=== PATIENT | male | born 1930 | race Caucasian/White ===

== ENCOUNTER 2017-02-19 12:35 | Emergency (ER) | payer MEDICARE, OTHER ==
[2017-02-19 12:57] LABS: Basophils # (A) 0.1 k/uL (0-0.2); Basophils % (A) 1 %; CH 29.4; CHCM 33.1; Eosinophils # (A) 0.1 k/uL (0-0.7); Eosinophils % (A) 2 %; HCT 41.8 % (39.0-53.0); HDW 2.62; HGB 13.6 gm/dL (13.0-17.5); Luc # (Auto) 0.08; Luc % (Auto) 1; Lymphocytes # (A) 1.1 k/uL (1.0-4.8); Lymphocytes % (A) 18 %; MCHC 32.5 g/dL (31.0-37.0); MCV 89.3 fL (80.0-100.0); Mean Platelet Volume 6.9; Monocytes # (A) 0.4 k/uL (0-1.0); Monocytes % (A) 6 %; Neutrophils # (A) 4.4 k/uL (1.3-7.7); Neutrophils % (A) 72 %; RBC 4.69 m/uL (4.30-5.90); RDW 13.9 % (11.5-15.5); WBC 6.1 k/uL (3.8-10.6); WBC (Perox) 6.12
--- NOTE | 2017-02-19 12:57 | ED ---
General Adult HPI - General Chief complaint: Dizziness Time Seen by Provider: 02/19/17 12:40 Source: patient, family, RN notes reviewed Mode of arrival: wheelchair Limitations: no limitations - History of Present Illness Initial comments: This is an 86-year-old male who presents to the emergency department complaining of feeling lightheaded becoming clammy and then nauseated. Patient was sent in to have an echocardiogram because he had a new murmur. According to the geotechnical operating engineer the patient was done with the test he stood up and became lightheaded and then became very clammy and very nauseated. Patient states this does happen to him occasionally gets up too fast. Patient did not think he got up too fast today however. Patient currently is asymptomatic. Patient states he never had any difficulty breathing or shortness of breath patient denies any chest pain or palpitations. Patient denies any recent fever chills or cough. Patient states he did eat a normal breakfast. Patient states he believes he has been hydrated lately as well. Patient denies any headache patient denies any numbness or focal weakness. - Related Data Home Medications Medication Instructions Recorded Confirmed Aspirin EC [Ecotrin Low Dose] 81 mg PO MOTUWETHFRSA 02/07/17 02/19/17 Calcium Carbonate/Vitamin D3 1 tab PO DAILY 02/07/17 02/19/17 [Calcium 600-Vit D3 200 Tablet] Allergies Allergy/AdvReac Type Severity Reaction Status Date / Time No Known Allergies Allergy Verified 02/19/17 13:10 Review of Systems ROS Statement: Those systems with pertinent positive or pertinent negative responses have been documented in the HPI. ROS Other: All systems not noted in ROS Statement are negative. Past Medical History Additional Past Medical History / Comment(s): Prostate cancer, kidney stone History of Any Multi-Drug Resistant Organisms: None Reported Past Surgical History: Hernia Repair, Orthopedic Surgery Additional Past Surgical History / Comment(s): isamar. hip replacement, prostate cancer with radiation in 2005 or 2007 per pt., bilateral cataract extraction and intraocular lens implants Past Anesthesia/Blood Transfusion Reactions: No Reported Reaction Past Psychological History: No Psychological Hx Reported Smoking Status: Never smoker Past Alcohol Use History: Occasional Additional Past Alcohol Use History / Comment(s): Patient is a lifelong nonsmoker. He denies any medical marijuana, marijuana, street drug use. He drinks 5-6 beers per week. He is retired tailor. He lives at home with his . Past Drug Use History: None Reported - Past Family History Father Family Medical History: Cancer Additional Family Medical History / Comment(s): at age 80 from bladder cancer. Mother Family Medical History: Congestive Heart Failure (CHF) Additional Family Medical History / Comment(s): Mother at age 85 from heart failure. She had history of abdominal aortic aneurysm repair. Brother(s) Additional Family Medical History / Comment(s): Patient has no brothers, no sisters. Son(s) Additional Family Medical History / Comment(s): Patient has 2 sons and 1 daughter with no major medical problems. General Exam - General Exam Comments Initial Comments: GENERAL: Patient is well-developed and well-nourished. Patient is nontoxic and well- hydrated and is in no acute distress. ENT: Neck is soft and supple. No significant lymphadenopathy is noted. Oropharynx is clear. Moist mucous membranes. Neck has full range of motion without eliciting any pain. EYES: The sclera were anicteric and conjunctiva were pink and moist. Extraocular movements were intact and pupils were equal round and reactive to light. Eyelids were unremarkable. PULMONARY: Unlabored respirations. Good breath sounds bilaterally. No audible rales rhonchi or wheezing was noted. CARDIOVASCULAR: There is a regular rate and rhythm without any murmurs gallops or rubs. ABDOMEN: Soft and nontender with normal bowel sounds. No palpable organomegaly was noted. There is no palpable pulsatile mass. SKIN: Skin is clear with no lesions or rashes and otherwise unremarkable. NEUROLOGIC: Patient is alert and oriented x3. Cranial nerves II through XII are grossly intact. Motor and sensory are also intact. Normal speech, volume and content. Symmetrical smile. MUSCULOSKELETAL: Normal extremities with adequate strength and full range of motion. No lower extremity swelling or edema. No calf tenderness. LYMPHATICS: No significant lymphadenopathy is noted PSYCHIATRIC: Normal psychiatric evaluation. Normal interpersonal interactions appears functionally intact in deals appropriately with others. No signs of depression. No signs of anxiety. Limitations: no limitations Course Vital Signs 02/19/17 02/19/17 12:38 12:53 Temperature 96.9 F L Pulse Rate 76 Respiratory 16 16 Rate Blood Pressure 140/78 Blood Pressure 138/74 [Left Arm Sitting] Blood Pressure 146/80 [Left Arm Standing] Blood Pressure 150/81 [Left Arm Supine] O2 Sat by Pulse 97 Oximetry Medical Decision Making - Medical Decision Making EKG shows a normal sinus rhythm at 71 bpm OH interval 174 QRS is 78 QT interval 396 QTC is 430. Patient's EKG shows no ST segment elevation or depression or T- wave abdomen is noted. Patient's chest x-ray shows no abnormality. Patient had no orthostatic hypotension. Patient was able to ambulate around the emergency department quite a brisk pace without symptoms. Patient wanted to be discharged home and he was looking good enough at this time to be discharged home and follow up with his primary medical care doctor and cardiology - Lab Data Result diagrams: 02/19/17 12:40 02/19/17 12:40 Lab Results 02/19/17 02/19/17 02/19/17 Range/Units 12:40 12:40 12:40 WBC 6.1 (3.8-10.6) k/uL RBC 4.69 (4.30-5.90) m/uL Hgb 13.6 (13.0-17.5) gm/dL Hct 41.8 (39.0-53.0) % MCV 89.3 (80.0-100.0) fL MCH 29.0 (25.0-35.0) pg MCHC 32.5 (31.0-37.0) g/dL RDW 13.9 (11.5-15.5) % Plt Count 229 (150-450) k/uL Neutrophils % 72 % Lymphocytes % 18 % Monocytes % 6 % Eosinophils % 2 % Basophils % 1 % Neutrophils # 4.4 (1.3-7.7) k/uL Lymphocytes # 1.1 (1.0-4.8) k/uL Monocytes # 0.4 (0-1.0) k/uL Eosinophils # 0.1 (0-0.7) k/uL Basophils # 0.1 (0-0.2) k/uL PT (9.0-12.0) sec INR (<1.1) APTT (22.0-30.0) sec Sodium 138 (137-145) mmol/L Potassium 5.0 (3.5-5.1) mmol/L Chloride 104 (98-107) mmol/L Carbon Dioxide 25 (22-30) mmol/L Anion Gap 9 mmol/L BUN 24 H (9-20) mg/dL Creatinine 0.66 (0.66-1.25) mg/dL Est GFR (MDRD) Af Amer >60 (>60 ml/min/1.73 sqM) Est GFR (MDRD) Non-Af >60 (>60 ml/min/1.73 sqM) Glucose 102 H (74-99) mg/dL Calcium 9.6 (8.4-10.2) mg/dL Magnesium 2.1 (1.6-2.3) mg/dL Total Bilirubin 0.8 (0.2-1.3) mg/dL AST 27 (17-59) U/L ALT 24 (21-72) U/L Alkaline Phosphatase 56 (38-126) U/L Total Creatine Kinase 74 (55-170) U/L CK-MB (CK-2) 2.1 (0.0-2.4) ng/mL CK-MB (CK-2) Rel Index 2.8 Troponin I <0.012 (0.000-0.034) ng/mL Total Protein 7.0 (6.3-8.2) g/dL Albumin 4.1 (3.5-5.0) g/dL 02/19/17 Range/Units 12:40 WBC (3.8-10.6) k/uL RBC (4.30-5.90) m/uL Hgb (13.0-17.5) gm/dL Hct (39.0-53.0) % MCV (80.0-100.0) fL MCH (25.0-35.0) pg MCHC (31.0-37.0) g/dL RDW (11.5-15.5) % Plt Count (150-450) k/uL Neutrophils % % Lymphocytes % % Monocytes % % Eosinophils % % Basophils % % Neutrophils # (1.3-7.7) k/uL Lymphocytes # (1.0-4.8) k/uL Monocytes # (0-1.0) k/uL Eosinophils # (0-0.7) k/uL Basophils # (0-0.2) k/uL PT 11.8 (9.0-12.0) sec INR 1.2 (<1.1) APTT 22.3 (22.0-30.0) sec Sodium (137-145) mmol/L Potassium (3.5-5.1) mmol/L Chloride (98-107) mmol/L Carbon Dioxide (22-30) mmol/L Anion Gap mmol/L BUN (9-20) mg/dL Creatinine (0.66-1.25) mg/dL Est GFR (MDRD) Af Amer (>60 ml/min/1.73 sqM) Est GFR (MDRD) Non-Af (>60 ml/min/1.73 sqM) Glucose (74-99) mg/dL Calcium (8.4-10.2) mg/dL Magnesium (1.6-2.3) mg/dL Total Bilirubin (0.2-1.3) mg/dL AST (17-59) U/L ALT (21-72) U/L Alkaline Phosphatase (38-126) U/L Total Creatine Kinase (55-170) U/L CK-MB (CK-2) (0.0-2.4) ng/mL CK-MB (CK-2) Rel Index Troponin I (0.000-0.034) ng/mL Total Protein (6.3-8.2) g/dL Albumin (3.5-5.0) g/dL Disposition Clinical Impression: Vasovagal episode Disposition: HOME SELF-CARE Instructions: Dizziness (ED) Referrals: Sally Hannah MD [Primary Care Provider] - 1-2 days Time of Disposition: 14:05
[2017-02-19 13:07] LABS: Anion Gap 9 mmol/L; Calcium 9.6 mg/dL (8.4-10.2); Carbon Dioxide 25 mmol/L (22-30); Chloride 104 mmol/L (98-107); Glucose 102 mg/dL (74-99); Non-African American GFR(MDRD) >60 (>60 ml/min/1.73 sqM); Sodium 138 mmol/L (137-145); Total Bilirubin 0.8 mg/dL (0.2-1.3)
[2017-02-19 13:08] LABS: ALT 24 U/L (21-72); AST 27 U/L (17-59); Blood Urea Nitrogen 24 mg/dL (9-20); Magnesium 2.1 mg/dL (1.6-2.3)
[2017-02-19 13:09] LABS: Alkaline Phosphatase 56 U/L (38-126)
[2017-02-19 13:13] LABS: INR 1.2 (<1.1); Prothrombin Time 11.8 sec (9.0-12.0)
[2017-02-19 13:16] LABS: Creatine Kinase 74 U/L (55-170)
[2017-02-19 13:19] LABS: Partial Thromboplastin Time 22.3 sec (22.0-30.0)
[2017-02-19 13:29] LABS: Creatine Kinase MB 2.1 ng/mL (0.0-2.4); Troponin I <0.012 ng/mL (0.000-0.034)
--- NOTE | 2017-02-19 13:41 | XR ---
EXAMINATION TYPE: XR chest 2V DATE OF EXAM: 02/19/2017 1:28 PM COMPARISON: Prior chest x-ray 19 May 2012 HISTORY: Chest pain TECHNIQUE: Frontal and lateral views of the chest are obtained. FINDINGS: There is no focal air space opacity, pleural effusion, or pneumothorax seen. The cardiac silhouette size is within normal limits. There is persistent elevation of the left hemidiaphragm. Gabby ntration of right hemidiaphragm is noted. The osseous structures are intact. IMPRESSION: No acute cardiopulmonary process.
[2017-02-19] MEDS ORDERED: SODIUM CHLORIDE 0.9% 500 ML IV ONE (13:52)
[2017-02-19 14:08] VITALS: RESP 18
[2017-02-19 14:49] VITALS: BP 162/82; PULSE 79; TEMP 97
--- NOTE | 2017-02-20 10:19 | ECHOF ---
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 This was a technically good study. There is mild concentric left ventricular hypertrophy. Overall left ventricular systolic function is low-normal with, an EF between 50 - 55 %. The right ventricle is normal in size. Normal LA size by volume 22+/-6 ml/m2. The right atrial size is normal. Moderate to severe aortic stenosis with peak/mean pressure gradient of 59.77mmHg / 32.91mmHg, the aortic valve area by continuity equation is 0.7cm. Mild mitral annular calcification present. Mild mitral regurgitation is present. Mild tricuspid regurgitation present. There is no evidence of pulmonary hypertension. The right ventricular systolic pressure, as measured by Doppler, is 25.18mmHg. There is no pulmonic regurgitation present. The aortic root size is normal. There is no pericardial effusion. CONCLUSIONS -------- 1. There is mild concentric left ventricular hypertrophy. 2. Overall left ventricular systolic function is low-normal with, an EF between 50 - 55 %. 3. Moderate to severe aortic stenosis with peak/mean pressure gradient of 59.77mmHg / 32.91mmHg, the aortic valve area by continuity equation is 0.7cm. 4. Mild mitral annular calcification present. 5. Mild mitral regurgitation is present. 6. Mild tricuspid regurgitation present. 7. There is no evidence of pulmonary hypertension. 8. The right ventricular systolic pressure, as measured by Doppler, is 25.18mmHg. EQUITY DIRECTOR: Kristan Hurley RDCS
== END 2017-02-19 14:47 | disposition home or self-care (01) ==
LOC: EC 12:35
DX: R55 Syncope and collapse (principal); R11.0 Nausea; Z79.82 Long term (current) use of aspirin; Z79.899 Other long term (current) drug therapy
CPT/HCPCS: 36415; 71020; 80053; 82550; 82553; 83735; 84484; 85025; 85610; 85730; 93005; 93306; 99284

== ENCOUNTER 2017-04-03 06:20 | Day surgery (SDC) | payer MEDICARE, OTHER ==
[2017-03-28 12:40] VITALS: BMI 28.3
[2017-04-03 06:52] VITALS: TEMP 97.7
[2017-04-03] MEDS ORDERED: BENZOCAINE SPRAY 100 APPLIC/CAN ONE (07:30)
[2017-04-03] MEDS ORDERED: MIDAZOLAM 2 MG/2 ML VIAL ONE (07:30)
[2017-04-03] MEDS ORDERED: fentaNYL (PF) 50 MCG/ML 2 ML AMP ONE (07:31)
[2017-04-03] MEDS ORDERED: BENZOCAINE SPRAY 100 APPLIC/CAN MUCOUS MEM ONE (07:38)
[2017-04-03] MEDS ORDERED: MIDAZOLAM 2 MG/2 ML VIAL IV ONE (07:38)
[2017-04-03] MEDS ORDERED: fentaNYL (PF) 50 MCG/ML 2 ML AMP IV ONE (07:38)
[2017-04-03] MEDS ORDERED: SODIUM CHLORIDE 0.9% 1,000 ML IV SCH (08:00)
[2017-04-03] MEDS ORDERED: SODIUM CHLORIDE 0.9% 500 ML IV ONE (08:01)
--- NOTE | 2017-04-03 08:34 | ECHOT ---
DATE OF SERVICE: INDICATION: Evaluation of aortic valve. PROCEDURE: After explaining the procedure to the patient, it's risk and complications, his blood pressure, heart rate, O2 saturation was monitored. The throat was sprayed with Cetacaine. He received 2 mg of intravenous Versed, 50 mcg intravenous fentanyl. After obtaining moderate conscious sedated state, the probe was introduced into the esophagus without difficulty. Images were obtained. Following that, the probe was removed. There was no immediate complication. FINDINGS: Left atrial size is mildly dilated, left atrial appendage is normal. Left ventricular size and systolic function is normal. The aortic valve is a tricuspid valve with severe calcification and severe reduction in the opening by planimetry. The valve area is 0.9 cm2. The mitral valve revealed mild calcification. The tricuspid valve is normal. Descending thoracic aorta revealed mild to moderate atherosclerotic changes. No pericardial effusion was noted. Contrast bubble study revealed no evidence of shunting across the interatrial septum. Doppler pulse wave was obtained and revealed mild mitral and aortic regurgitation as well as tricuspid regurgitation. There was no evidence of shunting by color Doppler study. There was difficulty obtaining an accurate gradient across the aortic valve. CONCLUSION: 1. Moderate dilated left atrium and internal systolic function. 2. Tricuspid aortic valve with severe aortic stenosis. 3. Mild mitral and aortic regurgitation and tricuspid regurgitation. 4. No shunting across the interatrial septum. 5. Mild to moderate atherosclerotic changes of the descending thoracic aorta.
[2017-04-03] MEDS ORDERED: ASPIRIN 81 MG CHEW PO SCH (09:00)
[2017-04-03 09:02] VITALS: PULSE 78; RESP 18
[2017-04-03 09:33] VITALS: BP 124/72
[2017-04-03] MEDS ORDERED: CALCIUM CARB-VIT D 500MG-200UN 1 EACH TAB PO SCH (12:00)
== END 2017-04-03 09:30 | disposition home or self-care (01) ==
LOC: CATHCVL 06:20
PROVIDERS: ATTEND Internal Medicine Interventional Cardiology
DX: I35.0 Nonrheumatic aortic (valve) stenosis (principal); I36.1 Nonrheumatic tricuspid (valve) insufficiency; I34.0 Nonrheumatic mitral (valve) insufficiency; I70.0 Atherosclerosis of aorta; E78.00 Pure hypercholesterolemia, unspecified; E78.5 Hyperlipidemia, unspecified; Z85.46 Personal history of malignant neoplasm of prostate; Z79.82 Long term (current) use of aspirin; Z79.899 Other long term (current) drug therapy
CPT/HCPCS: 93312; 93320; 93325; 99152; J2250; J3010

== ENCOUNTER → 2019-09-14 | Outpatient (CLI) | payer MEDICARE ==
[2019-09-14 10:36] LABS: HCT 41.1 % (39.0-53.0); HGB 13.6 gm/dL (13.0-17.5); MCH 29.3 pg (25.0-35.0); MCHC 33.1 g/dL (31.0-37.0); MCV 88.5 fL (80.0-100.0); Mean Platelet Volume 6.4; Platelet Count 239 k/uL (150-450); RBC 4.64 m/uL (4.30-5.90); RDW 13.7 % (11.5-15.5); WBC 7.5 k/uL (3.8-10.6)
[2019-09-14 10:58] LABS: African American GFR (CKD) >90 (>60 ml/min/1.73 sqM); Anion Gap 6 mmol/L; Blood Urea Nitrogen 23 mg/dL (9-20); Carbon Dioxide 28 mmol/L (22-30); Chloride 107 mmol/L (98-107); Potassium 4.4 mmol/L (3.5-5.1); Sodium 141 mmol/L (137-145)
== END | disposition home or self-care (01) ==
LOC: LABPAT 10:11
PROVIDERS: ATTEND Internal Medicine Interventional Cardiology
DX: Z01.812 Encounter for preprocedural laboratory examination (principal); I35.0 Nonrheumatic aortic (valve) stenosis
CPT/HCPCS: 36415; 80051; 82565; 84520; 85027

== ENCOUNTER 2019-09-15 06:03 | Day surgery (SDC) | payer MEDICARE ==
[2019-09-14 08:47] VITALS: BMI 28.7
[2019-09-15] MEDS ORDERED: SODIUM CHLORIDE 0.9% 1,000 ML in EMPTY BAG 1 BAG IV ONE (06:12)
[2019-09-15] MEDS ORDERED: NITROGLYCERIN SL TABS 0.4 MG TAB SUBLINGUAL PRN (06:12)
[2019-09-15] MEDS ORDERED: ALPRAZolam 0.5 MG TAB PO PRN (06:12)
[2019-09-15] MEDS ORDERED: ALPRAZolam 0.25 MG TAB PO PRN (06:12)
[2019-09-15 06:35] VITALS: TEMP 97.8
[2019-09-15] MEDS ORDERED: SODIUM CHLORIDE 0.9% 1,000 ML IV ONE ×2 (06:36→07:16)
[2019-09-15] MEDS ORDERED: ASPIRIN 325 MG TAB PO ONE (07:00)
[2019-09-15] MEDS ORDERED: ATORVASTATIN 80 MG TAB PO ONE (07:00)
[2019-09-15] MEDS ORDERED: fentaNYL (PF) 50 MCG/ML 2 ML AMP ONE (07:00)
[2019-09-15] MEDS ORDERED: BENZOCAINE SPRAY 1 CAN MUCOUS MEM ONE (07:15)
[2019-09-15] MEDS ORDERED: fentaNYL (PF) 50 MCG/ML 2 ML AMP IVP ONE (07:20)
[2019-09-15] MEDS ORDERED: MIDAZOLAM 2 MG/2 ML VIAL IVP ONE (07:20)
--- NOTE | 2019-09-15 07:56 | ECHOT ---
TRANSESOPHAGEAL ECHOCARDIOGRAM INDICATION: Evaluation of aortic valve. PROCEDURE: After explaining the procedure to the patient, its risks and the complications, blood pressure, heart rate, O2 saturation was monitored. The throat was sprayed with Cetacaine. He received 2 mg intravenous Versed, 50 mcg intravenous fentanyl. The probe was introduced in the esophagus without difficulty. Images were obtained. Following that, the probe was removed. There was no immediate complication. FINDINGS: Left atrial size is mildly dilated. Left ventricular size and systolic function normal. Left ventricular hypertrophy was noted. The mitral valve revealed mild mitral anulus calcification. Tricuspid valve is normal. The aortic valve is tricuspid valve with severe calcification and severe reduction in the opening. Descending thoracic aorta revealed no significant atherosclerotic changes. No pericardial effusion was noted. Contrast bubble study revealed no shunting across the interatrial septum with Valsalva maneuver. Doppler pulse wave and color Doppler obtained and revealed a mean gradient across the aortic valve of 42 mmHg with a peak of 62 mmHg consistent with severe aortic stenosis. Mild mitral, aortic and tricuspid regurgitation. There was no evidence of pulmonary hypertension. There was no shunting by color Doppler study. CONCLUSION: 1. Mildly dilated left atrium. 2. Normal left ventricular size and systolic function and left ventricular hypertrophy. 3. Severe aortic stenosis with a mean gradient of 42 mmHg with mild aortic regurgitation. 4. Mild mitral and tricuspid regurgitation. 5. No shunting across the interatrial septum. 6. No pericardial effusion. MMODL / IJN: [id number] /
[2019-09-15] MEDS ORDERED: LIDOCAINE 1% INJ 10MG/ML (20 ML MDV) SQ ONE ×2 (08:03→08:36)
[2019-09-15] MEDS ORDERED: VERAPAMIL SYRINGE (5 MG/10 ML) INTRAARTER ONE (08:04)
[2019-09-15 08:37] LABS: O2 Sat Blood Gas 93.4 %
[2019-09-15 08:39] LABS: O2 Sat Blood Gas 64.8 %
[2019-09-15] MEDS ORDERED: HEPARIN SODIUM 1,000 UN/ML (10ML VL) IV ONE (08:39)
[2019-09-15] MEDS ORDERED: IOPAMIDOL-370 125ML BTL INJ ONE (08:53)
[2019-09-15] MEDS ORDERED: RX INFO: IV CONTRAST WAS GIVEN 1 EACH MISC MISCELLANE PRN (09:08)
[2019-09-15] MEDS ORDERED: SODIUM CHLORIDE 0.9% 1,000 ML IV SCH (09:15)
--- NOTE | 2019-09-15 09:53 | CC ---
CARDIAC CATHETERIZATION REPORT Mr. Mcleod is an 89-year-old male with known history of severe aortic stenosis who has been complaining of progressive dyspnea and fatigue was worsening aortic valve gradient on his transthoracic echocardiogram in view of that, recommendation regarding cardiac catheterization the procedures risks and complications were discussed with the patient who is in full understanding and agreement. PROCEDURE: Patient was brought to catholic priest in a fasting semi-sedated state after receiving fentanyl and Benadryl and achieving moderate conscious sedated state. Using Xylocaine anesthesia and Seldinger technique, a 6-Brazilian sheath was introduced in the right radial artery. Following that, the intravenous sheath in the right basic cervical vein was exchanged to a 6-Brazilian sheath and right heart catheterization was performed using [place]-Julissa catheter multiple pressure and samples were obtained cardiac output by thermodilution was calculated. Following that, right coronary angiography was performed using 5-Brazilian 3.5 bend right Aisha catheter images of the right coronary artery were performed. Multiple attempts to advance a 3 and half 5 bend and a multipurpose A2 as well as Bhaskar catheter were unsuccessful because of tortuosity in the right takeoff of the records phallic artery at that time. Using Xylocaine anesthesia and Seldinger technique, an is using Xylocaine and anesthesia/technique a 6- Brazilian sheath was introduced right femoral artery and a 6-Brazilian FL4, 6-Brazilian 4 and half bent left Aisha catheter was used to cannulate seeing the left main. Images of the coronary artery were performed. Following that, catheter and sheath were removed. Hemostasis was obtained with deployment of a TR band and compression of the right femoral artery. The patient received 4500 units of intravenous heparin as well as intra-arterial verapamil. There was no immediate complication. FINDINGS: HEMODYNAMICS: Pulmonary artery systolic pressure of 32 with a diastolic of 14 and a mean of 20 mmHg. PULMONARY CAPILLARY WEDGE PRESSURE: A-wave of 18, V-wave of 16 with a mean of 14 mmHg. Her right ventricular systolic pressure of 30 with an end-diastolic of 4 mmHg. Right atrial A-wave of 6, V-wave of 4 with a mean of 3 mmHg. Right atrial saturation 65%, pulmonary saturation 65%. The arterial saturation 93%. Cardiac output by thermodilution 5.1 L/minute. FLUOROSCOPY: There was severe calcification involving the aortic valve. LEFT MAIN: This is a large-sized vessel, bifurcating into left circumflex, left anterior descending artery, left main coronary artery has no evidence of high-grade stenosis. LEFT ANTERIOR DESCENDING ARTERY: This is a large-sized vessel, reaching toward the apex, tapers down distal third, giving rise to a large diagonal branch. At the takeoff of the diagonal branch, the LAD has a tubular 70% to 80% stenosis. The proximal diagonal branch has a 60% to 70% plaque. The rest of the vessel has no high-grade stenosis. LEFT CIRCUMFLEX: This is a large dominant vessel, tortuous proximally giving rise to a large obtuse marginal branch. Distally bifurcating into PDA and posterolateral segment branches. The left circumflex has mild intimal disease in the distal segment of 20% to 30% without any evidence of high-grade stenosis. RIGHT CORONARY ARTERY: This is a small nondominant vessel. The mid segment of the right coronary artery has an area of stenosis of 70% to 80%. The rest of the vessel has no high-grade stenosis. CONCLUSION: 1. 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 2. Significant disease small nondominant right coronary artery. 3. Heavily calcified aortic valve. RECOMMENDATION: At this time, I will continue medical therapy. Patient will be evaluated for TAVR and possible coronary percutaneous revascularization. Those findings and recommendation were discussed with the patient and his family who are in full understanding and agreement. Duration of procedure is 54 minutes. MMODL / IJN: [id number] /
[2019-09-15 10:31] VITALS: RESP 16
[2019-09-15 16:41] VITALS: BP 125/72; PULSE 65
[2019-09-15] MEDS ORDERED: METOPROLOL SUCCINATE (ER) 25 MG TAB.ER.24H PO SCH (21:00)
[2019-09-16] MEDS ORDERED: ASPIRIN 81 MG PO SCH (09:00)
[2019-09-16] MEDS ORDERED: amLODIPine 10 MG TAB PO SCH (09:00)
== END 2019-09-15 17:06 | disposition home or self-care (01) ==
LOC: CATHCVL 06:03
PROVIDERS: ATTEND Internal Medicine Interventional Cardiology
DX: I08.3 Combined rheumatic disorders of mitral, aortic and tricuspid valves (principal); I77.1 Stricture of artery; I25.10 Atherosclerotic heart disease of native coronary artery without angina pectoris; I11.9 Hypertensive heart disease without heart failure; E78.00 Pure hypercholesterolemia, unspecified; E78.5 Hyperlipidemia, unspecified; R60.0 Localized edema; Z79.82 Long term (current) use of aspirin; Z79.899 Other long term (current) drug therapy
CPT/HCPCS: 93312; 93320; 93325; 93456; 85018; 82810; C1751; C1894 ×2; C1769; J2250; J2001; J3010; J1644; Q9967

== ENCOUNTER 2019-10-06 10:13 | Day surgery (SDC) | payer MEDICARE ==
[2019-09-30 10:51] VITALS: BMI 28.7
[~2019-10-06 10:13] MED LIST: ALPRAZolam 0.25 MG TAB PO PRN; ALPRAZolam 0.5 MG TAB PO PRN; ASPIRIN 325 MG TAB PO STA; ATORVASTATIN 80 MG TAB PO STA; NITROGLYCERIN SL TABS 0.4 MG TAB SUBLINGUAL PRN; SODIUM CHLORIDE 0.9% 1,000 ML in EMPTY BAG 1 BAG IV ONE
[2019-10-06] MEDS ORDERED: fentaNYL (PF) 50 MCG/ML 2 ML AMP ONE (12:06)
[2019-10-06] MEDS ORDERED: LIDOCAINE 1% INJ 10MG/ML (20 ML MDV) ONE (12:06)
[2019-10-06] MEDS ORDERED: fentaNYL (PF) 50 MCG/ML 2 ML AMP IV ONE (12:18)
[2019-10-06] MEDS ORDERED: LIDOCAINE 1% INJ 10MG/ML (20 ML MDV) SQ ONE (12:22)
[2019-10-06] MEDS ORDERED: BIVALIRUDIN BOLUS 250 MG/50 ML IV ONE (12:29)
[2019-10-06] MEDS ORDERED: BIVALIRUDIN 250 MG in SODIUM CHLORIDE 0.9% 50 ML IV ONE (12:29)
[2019-10-06] MEDS ORDERED: CLOPIDOGREL 75 MG TAB ONE (12:31)
[2019-10-06] MEDS ORDERED: CLOPIDOGREL 75 MG TAB PO ONE (12:37)
[2019-10-06] MEDS ORDERED: IOPAMIDOL-370 125ML BTL INJ ONE (13:03)
[2019-10-06] MEDS ORDERED: IOPAMIDOL-370 100ML BTL INJ ONE (13:09)
[2019-10-06] MEDS ORDERED: MAG HYDROX/AL HYDROX/SIMETH 30 ML CUP PO PRN (13:26)
[2019-10-06] MEDS ORDERED: RX INFO: IV CONTRAST WAS GIVEN 1 EACH MISC MISCELLANE PRN (13:26)
[2019-10-06] MEDS ORDERED: NITROGLYCERIN SL TABS 0.4 MG TAB SUBLINGUAL PRN (13:26)
[2019-10-06] MEDS ORDERED: ATROPINE SULFATE 0.1 MG/ML 10ML SYRINGE IV PRN (13:26)
[2019-10-06] MEDS ORDERED: ZOLPIDEM 5 MG TAB PO PRN (13:26)
[2019-10-06] MEDS ORDERED: SODIUM CHLORIDE 0.9% 1,000 ML IV SCH (13:30)
--- NOTE | 2019-10-06 16:05 | PTCA ---
PERCUTANEOUSTRANS CORORONARY ANGIOGRAPHY Mr. Mcleod is an 89-year-old male with history of severe aortic stenosis, symptomatic, complaining of progressive dyspnea. He underwent cardiac catheterization and was found to have severe aortic stenosis with significant stenosis involving the mid LAD with moderate disease in the diagonal branch. Recommendation was made regarding angioplasty and stenting of the LAD in preparation for TAVR. The procedure, its risks and complications were discussed with the patient, who was in full understanding and agreement. PROCEDURE DESCRIPTION: Patient was brought to the laboratory monitor in a fasting, semi-sedated state after receiving fentanyl and Benadryl and achieving moderate conscious sedated state. A 6-Indian sheath was introduced in the left femoral artery. Because of the severe tortuosity in the left aortoiliac segment and the inability to advance a 6-Indian FL4.5 guiding catheter or a 6-Indian LBU 4.0, the sheath was removed and a 55 cm sheath was introduced. Following that, the 6-Indian FL4.5 guiding catheter was introduced into the system. After cannulating the left main, a 0.014 balanced medium-weight J-wire was advanced across and positioned in the distal diagonal branch and then a second 0.014 balanced medium-weight J-wire was advanced into the LAD and positioned distally. Following that, a 2.5 x 15 mm Trek balloon was advanced and one inflation at 8 atmospheres was done. Following that, the balloon was removed and a 2.75 x 18 mm Xience Dyan stent was advanced, deployed and post dilated at 16 atmospheres. After the last inflation, after appropriate wait, the balloon and the guidewire were withdrawn back into the guiding catheter. Images were obtained and repeated. Those images reveal stable successful stenting. At that point the guiding catheter, the balloon and the guidewire were removed. The sheath was removed. Hemostasis was obtained with deployment of an Angio-Seal. There was no immediate complication. The patient was returned to his room in stable condition. Of note, the patient received Angiomax per protocol as well as oral loading dose of clopidogrel. He had no chest pain or EKG changes with the inflations. RESULTS: Successful stenting of the mid LAD with reduction of stenosis from 80% to 0%. There was a 60% lesion in the proximal diagonal branch with a DEIDRE-3 flow. RECOMMENDATIONS: Patient will be continued on aspirin, Plavix and statin. The importance of dual antiplatelet treatment was discussed with the patient and his family, who are in full understanding and agreement. The patient will be referred following that to [facility] to undergo TAVR. Duration of procedure was 56 minutes. JHONATHAN / DALE: [id number] /
--- NOTE | 2019-10-06 16:05 | LTR ---
October 06, 2019 To: Dr. Sally Hannah Re: Jeremias Mcleod (30) Dear Dr. Hannah, I had the pleasure of performing angioplasty and stenting on Mr. Mcleod at [facility] on October 06, and a full copy of the procedure note will be forwarded to you. In brief, he was found to have critical stenosis involving the mid LAD and underwent successful stenting of that vessel. At this time I will continue medical therapy and subsequently proceed with a referral to [facility] to proceed with the TAVR procedure. I will keep you updated on his progress. Thank you again for allowing me to participate in his care. Please feel free to call with any questions. Sincerely yours, Joe Garcia M.D. JHONATHAN / DALE: [id number] /
[2019-10-06] MEDS: METOPROLOL SUCCINATE (ER) 25 MG TAB.ER.24H PO SCH (20:20)
[2019-10-06 20:37] LABS: Glucose,Whole Blood 106 mg/dL (75-99)
[2019-10-06] MEDS ORDERED: amLODIPine 10 MG TAB PO SCH (21:00)
[2019-10-07 06:19] LABS: Glucose,Whole Blood 85 mg/dL (75-99)
[2019-10-07 06:29] LABS: African American GFR (CKD) >90 (>60 ml/min/1.73 sqM); Anion Gap 4 mmol/L; Blood Urea Nitrogen 20 mg/dL (9-20); Calcium 9.3 mg/dL (8.4-10.2); Carbon Dioxide 26 mmol/L (22-30); Chloride 106 mmol/L (98-107); Glucose 92 mg/dL (74-99); Non-African American GFR(CKD) 83 (>60 ml/min/1.73 sqM); Potassium 4.4 mmol/L (3.5-5.1); Sodium 136 mmol/L (137-145)
[2019-10-07] MEDS: METOPROLOL SUCCINATE (ER) 25 MG TAB.ER.24H PO SCH (08:58)
[2019-10-07] MEDS ORDERED: ASPIRIN 81 MG PO SCH (09:00)
[2019-10-07] MEDS ORDERED: ATORVASTATIN 40 MG TAB PO SCH (09:00)
[2019-10-07 09:01] VITALS: BP 97/53; PULSE 70; RESP 16; TEMP 98
--- NOTE | 2019-10-07 09:12 | PN ---
PROGRESS NOTE Mr. Mcleod is an 89-year-old male with a known history of severe aortic stenosis, history of hypertension, hyperlipidemia, who underwent cardiac catheterization, was found to have significant obstructive disease involving the LAD, underwent stenting of the LAD yesterday. He is doing well this morning, he is denying any chest pain, his breathing has been stable. He denies any dizziness, palpitation. He denies any nausea. He continues to be on aspirin once a day, Plavix 75 mg daily, Lipitor 40 mg daily, amlodipine 10 mg daily, metoprolol succinate 25 mg twice a day. PHYSICAL EXAMINATION: Blood pressure running in the low 100s with a heart rate in the 70s. LUNGS: Clear. HEART: Regular rate and rhythm, S1, S2. No S3 with systolic ejection murmur, 3/6 heard at the left upper sternal border, no diastolic murmur, no rub. ABDOMEN: Soft, nontender. Positive bowel sounds no organomegaly. EXTREMITIES: No edema right groin, left groin with mild ecchymosis, no hematoma. LAB DATA: Revealed BUN and creatinine 29 and 0.72, potassium 4.4. EKG no acute changes. IMPRESSION: 1. Status post stenting of the LAD. 2. Severe critical aortic stenosis. 3. Hypertension. 4. Hyperlipidemia. RECOMMENDATION: The patient dose of Norvasc will be decreased to 5 mg daily. He will be discharged home today, evaluated in the office in one week and subsequently reversed to [facility] for TAVR. MMMIGUELL / GENAN: [id number] /
[2019-10-07] MEDS ORDERED: CLOPIDOGREL 75 MG TAB PO SCH (12:00)
[2019-10-07] MEDS ORDERED: amLODIPine 5 MG TAB PO SCH (21:00)
== END 2019-10-07 09:43 | disposition home or self-care (01) ==
LOC: CATHCVL 10:13 → 3SCARD 13:16 → CATHCVL 10-07 09:43
PROVIDERS: ATTEND Internal Medicine Interventional Cardiology
DX: I25.10 Atherosclerotic heart disease of native coronary artery without angina pectoris (principal); I35.0 Nonrheumatic aortic (valve) stenosis; I10 Essential (primary) hypertension; E78.5 Hyperlipidemia, unspecified; E78.00 Pure hypercholesterolemia, unspecified; C61 Malignant neoplasm of prostate; Z79.82 Long term (current) use of aspirin; Z79.02 Long term (current) use of antithrombotics/antiplatelets; Z79.899 Other long term (current) drug therapy; Z96.649 Presence of unspecified artificial hip joint; Z98.49 Cataract extraction status, unspecified eye; Z98.890 Other specified postprocedural states
CPT/HCPCS: 85347; 80048; C9600; C1769 ×5; C1760; C1894 ×2; C1887 ×2; C1725; C1874; J2001; J3010; J0583; Q9967 ×2

== ENCOUNTER 2019-12-23 09:16 | Emergency (ER) | payer MEDICARE, OTHER ==
[2019-12-23 09:23] VITALS: RESP 18; TEMP 97.5
[2019-12-23] MEDS ORDERED: MECLIZINE 12.5 MG TAB PO STA (09:49)
[2019-12-23] MEDS ORDERED: ACETAMINOPHEN TAB 500 MG TAB PO STA (09:51)
--- NOTE | 2019-12-23 09:54 | ED ---
General Adult HPI - General Chief complaint: Dizziness Stated complaint: dizziness, headache Time Seen by Provider: 12/23/19 09:28 Source: patient, RN notes reviewed, old records reviewed Mode of arrival: ambulatory Limitations: physical limitation - History of Present Illness Initial comments: 89-year-old male presenting for evaluation of dizziness, headache. Patient states that he woke this morning feeling dizzy and unsteady on his feet, this was around 5 AM. By 6 AM he developed a headache. This was frontal, vaginal onset. Not the worst headache of his life, not a thunderclap headache. He gets headaches but very infrequently. He has scheduled aortic valve replacement at [facility] in one week. He denies chest pain or dyspnea. Denies abdominal pain. Denies nausea or vomiting. Denies lower extremity pain or edema. Denies focal numbness or weakness. - Related Data Home Medications Medication Instructions Recorded Confirmed Metoprolol Succinate [Toprol XL] 25 mg PO BID 09/14/19 12/23/19 Clopidogrel [Plavix] 75 mg PO HS 12/23/19 12/23/19 Previous Rx's Medication Instructions Recorded Aspirin EC [Ecotrin Low Dose] 81 mg PO DAILY #0 10/07/19 Atorvastatin [Lipitor] 40 mg PO DAILY #90 tab 10/07/19 Nitroglycerin Sl Tabs [Nitrostat] 0.4 mg SUBLINGUAL Q5M PRN #25 tab 10/07/19 amLODIPine BESYLATE [Norvasc] 5 mg PO HS #0 10/07/19 Allergies Allergy/AdvReac Type Severity Reaction Status Date / Time No Known Allergies Allergy Verified 12/23/19 10:06 Review of Systems ROS Statement: Those systems with pertinent positive or pertinent negative responses have been documented in the HPI. ROS Other: All systems not noted in ROS Statement are negative. Past Medical History Past Medical History: Cancer, Hypertension, Osteoarthritis (OA), Prostate Disorder Additional Past Medical History / Comment(s): Prostate Cancer. Kidney Stone. ABN ECHOCARDIOGRAM History of Any Multi-Drug Resistant Organisms: None Reported Past Surgical History: Heart Catheterization, Hernia Repair, Orthopedic Surgery Additional Past Surgical History / Comment(s): PARAMJIT and Heart cath 09-15-19,isamar. hip replacement. prostate cancer with radiation in 2005 or 2006 per pt., bilateral cataract extraction and intraocular lens implants Past Anesthesia/Blood Transfusion Reactions: No Reported Reaction Past Psychological History: No Psychological Hx Reported Smoking Status: Never smoker Past Alcohol Use History: None Reported Past Drug Use History: None Reported - Past Family History Father Family Medical History: Cancer Additional Family Medical History / Comment(s): at age 80 from bladder cancer. Mother Family Medical History: Congestive Heart Failure (CHF) Additional Family Medical History / Comment(s): Mother at age 85 from heart failure. She had history of abdominal aortic aneurysm repair. Brother(s) Additional Family Medical History / Comment(s): Patient has no brothers, no sisters. Son(s) Additional Family Medical History / Comment(s): Patient has 2 sons and 1 daughter with no major medical problems. General Exam Limitations: physical limitation General appearance: alert, in no apparent distress Head exam: Present: atraumatic, normocephalic Eye exam: Present: normal appearance, PERRL ENT exam: Present: normal exam Neck exam: Present: normal inspection. Absent: tenderness, meningismus Respiratory exam: Present: normal lung sounds bilaterally, respiratory distress. Absent: wheezes Cardiovascular Exam: Present: regular rate, normal rhythm, systolic murmur GI/Abdominal exam: Present: soft. Absent: distended, tenderness, guarding Extremities exam: Present: normal inspection, normal capillary refill. Absent: pedal edema Neurological exam: Present: alert, oriented X3, CN II-XII intact. Absent: motor sensory deficit Psychiatric exam: Present: normal affect, normal mood Skin exam: Present: warm, dry, intact. Absent: cyanosis, diaphoretic Course Vital Signs 12/23/19 12/23/19 12/23/19 09:20 10:00 11:00 Temperature 97.5 F L Pulse Rate 65 68 62 Respiratory 18 18 18 Rate Blood Pressure 162/85 133/73 101/65 O2 Sat by Pulse 100 97 96 Oximetry EKG Findings - EKG Comments: EKG Findings:: EKG: Normal sinus rhythm, LVH, rate of 63, NM interval 176, QRS duration 82, QTC [address] segment elevation, question ST segment depression in inferior leads Medical Decision Making - Medical Decision Making 89-year-old male history of aortic stenosis presenting with an episode of dizziness, headache. He is on aspirin and Plavix, head CT was performed in the emergency department which is negative for intracranial hemorrhage. Headache resolves with Tylenol no other treatment. He has stable vitals and a nonfocal neurologic exam. He has no nuchal signs of heart failure, no dyspnea, no JVD, lungs are clear, he has no peripheral edema. He does have a murmur consistent with aortic stenosis. Echo reviewed, has severe aortic stenosis and is planned for aortic valve replacement at [facility] in the next week. Patient eager for discharge, he will return with worsening headache, development dyspnea or chest pain, lower extremity edema, any new or worsening symptoms he will return. He will follow-up with his primary care physician and maintain his appointment for valve replacement in one week. - Lab Data Result diagrams: 12/23/19 09:36 12/23/19 09:36 Lab Results 12/23/19 12/23/19 12/23/19 Range/Units 09:36 09:36 09:36 WBC 7.5 (3.8-10.6) k/uL RBC 5.32 (4.30-5.90) m/uL Hgb 14.6 (13.0-17.5) gm/dL Hct 45.6 (39.0-53.0) % MCV 85.8 (80.0-100.0) fL MCH 27.5 (25.0-35.0) pg MCHC 32.1 (31.0-37.0) g/dL RDW 13.5 (11.5-15.5) % Plt Count 239 (150-450) k/uL Neutrophils % 81 % Lymphocytes % 10 % Monocytes % 5 % Eosinophils % 2 % Basophils % 1 % Neutrophils # 6.1 (1.3-7.7) k/uL Lymphocytes # 0.8 L (1.0-4.8) k/uL Monocytes # 0.4 (0-1.0) k/uL Eosinophils # 0.1 (0-0.7) k/uL Basophils # 0.1 (0-0.2) k/uL PT (9.0-12.0) sec INR (<1.2) APTT (22.0-30.0) sec Sodium 136 L (137-145) mmol/L Potassium 4.5 (3.5-5.1) mmol/L Chloride 104 (98-107) mmol/L Carbon Dioxide 25 (22-30) mmol/L Anion Gap 7 mmol/L BUN 15 (9-20) mg/dL Creatinine 0.70 (0.66-1.25) mg/dL Est GFR (CKD-EPI)AfAm >90 (>60 ml/min/1.73 sqM) Est GFR (CKD-EPI)NonAf 84 (>60 ml/min/1.73 sqM) Glucose 114 H (74-99) mg/dL Calcium 9.7 (8.4-10.2) mg/dL Magnesium (1.6-2.3) mg/dL Total Bilirubin 0.7 (0.2-1.3) mg/dL AST 24 (17-59) U/L ALT 11 (4-49) U/L Alkaline Phosphatase 85 (38-126) U/L Troponin I (0.000-0.034) ng/mL NT-Pro-B Natriuret Pep 1190 pg/mL Total Protein 7.0 (6.3-8.2) g/dL Albumin 4.1 (3.5-5.0) g/dL 12/23/19 12/23/19 12/23/19 Range/Units 09:36 09:36 09:36 WBC (3.8-10.6) k/uL RBC (4.30-5.90) m/uL Hgb (13.0-17.5) gm/dL Hct (39.0-53.0) % MCV (80.0-100.0) fL MCH (25.0-35.0) pg MCHC (31.0-37.0) g/dL RDW (11.5-15.5) % Plt Count (150-450) k/uL Neutrophils % % Lymphocytes % % Monocytes % % Eosinophils % % Basophils % % Neutrophils # (1.3-7.7) k/uL Lymphocytes # (1.0-4.8) k/uL Monocytes # (0-1.0) k/uL Eosinophils # (0-0.7) k/uL Basophils # (0-0.2) k/uL PT 11.4 (9.0-12.0) sec INR 1.1 (<1.2) APTT 24.4 (22.0-30.0) sec Sodium (137-145) mmol/L Potassium (3.5-5.1) mmol/L Chloride (98-107) mmol/L Carbon Dioxide (22-30) mmol/L Anion Gap mmol/L BUN (9-20) mg/dL Creatinine (0.66-1.25) mg/dL Est GFR (CKD-EPI)AfAm (>60 ml/min/1.73 sqM) Est GFR (CKD-EPI)NonAf (>60 ml/min/1.73 sqM) Glucose (74-99) mg/dL Calcium (8.4-10.2) mg/dL Magnesium 2.2 (1.6-2.3) mg/dL Total Bilirubin (0.2-1.3) mg/dL AST (17-59) U/L ALT (4-49) U/L Alkaline Phosphatase (38-126) U/L Troponin I 0.020 (0.000-0.034) ng/mL NT-Pro-B Natriuret Pep pg/mL Total Protein (6.3-8.2) g/dL Albumin (3.5-5.0) g/dL Disposition Clinical Impression: Aortic stenosis, Headache Disposition: HOME SELF-CARE Condition: Fair Instructions (If sedation given, give patient instructions): Dizziness (ED), Aortic Stenosis (ED), Acute Headache (ED) Is patient prescribed a controlled substance at d/c from ED?: No Referrals: Sally Hannah MD [Primary Care Provider] - 1-2 days Time of Disposition: 11:29
[2019-12-23 10:07] LABS: Basophils # (A) 0.1 k/uL (0-0.2); Basophils % (A) 1 %; Eosinophils # (A) 0.1 k/uL (0-0.7); Eosinophils % (A) 2 %; HCT 45.6 % (39.0-53.0); HGB 14.6 gm/dL (13.0-17.5); Lymphocytes # (A) 0.8 k/uL (1.0-4.8); Lymphocytes % (A) 10 %; MCH 27.5 pg (25.0-35.0); MCHC 32.1 g/dL (31.0-37.0); MCV 85.8 fL (80.0-100.0); Mean Platelet Volume 7.1; Monocytes # (A) 0.4 k/uL (0-1.0); Monocytes % (A) 5 %; Neutrophils # (A) 6.1 k/uL (1.3-7.7); Neutrophils % (A) 81 %; Platelet Count 239 k/uL (150-450); RBC 5.32 m/uL (4.30-5.90); RDW 13.5 % (11.5-15.5); WBC 7.5 k/uL (3.8-10.6)
[2019-12-23 10:16] LABS: ALT 11 U/L (4-49); AST 24 U/L (17-59); African American GFR (CKD) >90 (>60 ml/min/1.73 sqM); Albumin 4.1 g/dL (3.5-5.0); Alkaline Phosphatase 85 U/L (38-126); Anion Gap 7 mmol/L; Blood Urea Nitrogen 15 mg/dL (9-20); Calcium 9.7 mg/dL (8.4-10.2); Carbon Dioxide 25 mmol/L (22-30); Chloride 104 mmol/L (98-107); Glucose 114 mg/dL (74-99); Non-African American GFR(CKD) 84 (>60 ml/min/1.73 sqM); Potassium 4.5 mmol/L (3.5-5.1); Sodium 136 mmol/L (137-145); Total Bilirubin 0.7 mg/dL (0.2-1.3)
--- NOTE | 2019-12-23 10:23 | XR ---
EXAMINATION TYPE: XR chest 2V DATE OF EXAM: 12/23/2019 COMPARISON: 02/19/2017 HISTORY: 89-year-old male with near syncope TECHNIQUE: AP and lateral views FINDINGS: Continued elevation left hemidiaphragm. Heart upper limits of normal in size. Atherosclerotic aortic calcifications. Mild diffuse interstitial prominence is unchanged. No pleural effusion. Suspect some strandy atelectasis at the left base. No shannon consolidation. Degenerative changes at the AC joints. IMPRESSION: 1. Continued elevation left hemidiaphragm. Correlate for the possibility of a hemidiaphragmatic paral ysis. 2. Borderline heart size. Chronic changes. No definite acute process.
--- NOTE | 2019-12-23 10:27 | CT ---
EXAMINATION TYPE: CT brain wo con DATE OF EXAM: 12/23/2019 COMPARISON: None HISTORY: 89-year-old male MEEHAN, dizziness TECHNIQUE: Examination was done in axial plane without intravenous contrast. Coronal and sagittal r econstructions performed. CT DLP: 1040.4 mGycm Automated exposure control for dose reduction was used. FINDINGS: There is no evidence of acute intracranial hemorrhage, acute ischemic changes, mass, mass-effect, or extra-axial fluid collection. There is no effacement of cerebral sulci or basal subarachnoid cister ns. There is no hydrocephalus. There is no midline shift. Garcia-white matter distinction is preserv ed. Leftward nasal septal deviation. Orbits and globes are intact. Trace mucosal thickening ethmoid air c ells. Mastoid air cells well pneumatized. Partially empty sella. Dominant left vertebral artery. Atherosclerotic calcifications in the carotid siphons. Moderate bifrontal atrophy and mild patchy white matter hypodensities in both cerebral hemis pheres. IMPRESSION: Moderate atrophy and mild changes of chronic small vessel ischemic disease. No acute intracranial abn ormality seen.
[2019-12-23 11:11] LABS: INR 1.1 (<1.2); Partial Thromboplastin Time 24.4 sec (22.0-30.0); Prothrombin Time 11.4 sec (9.0-12.0)
[2019-12-23 11:39] VITALS: BP 127/74; PULSE 59
== END 2019-12-23 11:39 | disposition home or self-care (01) ==
LOC: EC 09:16
DX: I35.0 Nonrheumatic aortic (valve) stenosis (principal); R51 Headache; I10 Essential (primary) hypertension; M19.90 Unspecified osteoarthritis, unspecified site; Z79.02 Long term (current) use of antithrombotics/antiplatelets; Z79.899 Other long term (current) drug therapy; Z85.46 Personal history of malignant neoplasm of prostate; Z87.442 Personal history of urinary calculi; Z95.5 Presence of coronary angioplasty implant and graft; Z96.643 Presence of artificial hip joint, bilateral; Z92.3 Personal history of irradiation; Z82.49 Family history of ischemic heart disease and other diseases of the circulatory system
CPT/HCPCS: 36415; 70450; 71046; 80053; 83735; 83880; 84484; 85025; 85610; 85730; 93005; 99285

== ENCOUNTER → 2020-05-09 | Outpatient (CLI) | payer MEDICARE, OTHER ==
[2020-05-09 16:13] LABS: African American GFR (CKD) 91.8 (60.0-200.0); Albumin 4.1 g/dL (3.80-4.90); Albumin/Globulin Ratio 2.16 (1.60-3.17); Anion Gap 4.9 mmol/L (4.00-12.00); Calcium 9.4 mg/dL (8.7-10.3); Carbon Dioxide 26.1 mmol/L (21.6-31.8); Chol/HDL Ratio 4.22; Globulin 1.9 g/dL (1.6-3.3); LDL Cholesterol,Calculated 141.8 mg/dL (0.0-131.0); Non-African American GFR(CKD) 79.2 (60.0-200.0); Potassium 4.8 mmol/L (3.5-5.5); Total Bilirubin 0.5 mg/dL (0.2-1.2); VLDL Calculation 16.2 mg/dL (5.00-40.00)
== END | disposition home or self-care (01) ==
LOC: LABWHC1 08:20
PROVIDERS: ATTEND Internal Medicine Interventional Cardiology
DX: E78.2 Mixed hyperlipidemia (principal)
CPT/HCPCS: 36415; 80053; 80061